=== PATIENT | male | born 1940 | race Caucasian/White ===

== ENCOUNTER → 2019-04-01 | Outpatient (CLI) | payer MEDICARE | END | disposition home or self-care (01) | LOC: RAH 08:36 | PROVIDERS: ATTEND Urology | DX: N13.39 Other hydronephrosis (principal); N32.89 Other specified disorders of bladder; Z90.49 Acquired absence of other specified parts of digestive tract; Z96.641 Presence of right artificial hip joint | CPT/HCPCS: 74176 ==